=== PATIENT | male | born 1985 | race Caucasian/White ===

== ENCOUNTER 2019-11-07 23:28 | Emergency (ER) | payer OTHER ==
[2019-11-07 23:39] VITALS: BP 127/53; PULSE 89; TEMP 98.2; BMI 22.6
== END 2019-11-08 01:04 | disposition home or self-care (01) ==
LOC: JER 23:28
DX: Z48.02 Encounter for removal of sutures (principal)
CPT/HCPCS: 99282-25

== ENCOUNTER 2024-08-12 23:14 | Inpatient (IN) | payer SELFPAY ==
[2024-08-12] MEDS ORDERED: KETOROLAC TROMETHAMINE 15 MG/ML VIAL ONE (23:39)
[2024-08-12] MEDS ORDERED: ONDANSETRON 4 MG/2 ML VIAL ONE (23:39)
[2024-08-12] MEDS ORDERED: MORPHINE SULFATE 2 MG/ML SYRINGE ONE (23:39)
[2024-08-12] MEDS: morphine CARPU-JECT 2 MG/1 ML DISP.SYRIN IVPUSH ONE (23:50)
[2024-08-12] MEDS: ONDANSETRON 4 MG/2 ML VIAL IVPUSH ONE (23:50)
[2024-08-12] MEDS: KETOROLAC TROMETHAMINE 15 MG/ML VIAL IVPUSH ONE (23:50)
[2024-08-13 00:04] LABS: ABSOLUTE IMMATURE GRANULOCYTES 0.05 x10^3/uL (0.0-0.031); BASOPHILS # 0.08 x10^3/uL (0.01-0.08); EOSINOPHIL % 2.4 % (0.8-7.0); EOSINOPHILS # 0.25 x10^3/uL (0.04-0.54); HEMATOCRIT 36.1 % (40.1-51.0); HEMOGLOBIN 12.1 g/dL (13.7-17.5); MCHC 33.5 g/dl (32.3-36.5); MEAN CELL VOLUME 92.3 fl (79.0-92.2); MEAN PLT VOLUME 10.5 fl (9.4-12.4); MONOCYTE % 4.8 % (5.3-12.2); PLATELET COUNT 278 x10^3/uL (163-337); RDW 14.7 % (12.0-15.6)
[2024-08-13 00:25] LABS: POTASSIUM 4.2 mmol/L (3.5-5.1)
[2024-08-13 00:27] LABS: ALBUMIN 4.6 g/dl (3.4-5.0); BLOOD UREA NITROGEN 22.9 mg/dL (7-18); CALCIUM 10.2 mg/dL (8.5-10.1)
[2024-08-13 00:30] LABS: CREATININE 1.5 mg/dL (0.55-1.3)
[2024-08-13 00:32] LABS: BILIRUBIN,TOTAL 0.3 mg/dL (0.2-1); TOT PROT 8.5 g/dl (6.4-8.2)
[2024-08-13] MEDS ORDERED: TAMSULOSIN HCL 0.4 MG CAP ONE (00:52)
[2024-08-13] MEDS: TAMSULOSIN HCL 0.4 MG CAP PO ONE (00:57)
[2024-08-13] MEDS: SODIUM CHLORIDE 1,000 ML IV STA (00:57)
[2024-08-13 01:28] LABS: EPI CELLS 13 /uL (0-25.1); HYALINE CASTS 0 /uL (0-3.1); URINE APPEARANCE CLEAR; URINE BACTERIA 11 /uL (0-1359); URINE BILIRUBIN NEGATIVE (NEGATIVE); URINE COLOR YELLOW; URINE GLUCOSE (UA) NEGATIVE (NEGATIVE); URINE KETONE TRACE (NEGATIVE); URINE LEUK ESTERASE TRACE (NEGATIVE); URINE NITRITE NEGATIVE (NEGATIVE); URINE PROTEIN TRACE (NEGATIVE); URINE RBC 470 /uL (0-23.9); URINE WBC 48 /uL (0-25.8)
[2024-08-13] MEDS ORDERED: ALBUTEROL SO4 0.083% IH SOL 2.5 MG/3 ML VIAL.NEB. NEB PRN ×2 (02:53→08:22)
[2024-08-13] MEDS ORDERED: CEFTRIAXONE 1,000 MG in DEXTROSE 5%-WATER - 50 ML IVPB ONE (03:07)
[2024-08-13] MEDS ORDERED: morphine CARPU-JECT 8 MG/1 ML DISP.SYRIN IVPUSH PRN (06:15)
[2024-08-13 06:19] VITALS: BMI 18.8
[2024-08-13] MEDS: ACETAMINOPHEN 325 MG TABLET (FP) PO PRN (06:22)
[2024-08-13] MEDS: SODIUM CHLORIDE 1,000 ML IV SCH ×2 (06:23→09:25)
[2024-08-13] MEDS: FLUTICASONE PROP 0.05% 16 GM NASAL SPRAY NS ONE (06:50)
[2024-08-13] MEDS ORDERED: PROPOFOL 20 ML ONE (07:30)
[2024-08-13] MEDS ORDERED: MIDAZOLAM HCL 2 MG/2 ML SINGLE DOSE VIAL ONE (07:31)
[2024-08-13] MEDS ORDERED: oxyCODONE HCL 5 MG TABLET PO PRN (07:55)
[2024-08-13] MEDS: morphine CARPU-JECT 8 MG/1 ML DISP.SYRIN IVPUSH SCH (08:07)
[2024-08-13] MEDS: LACTATED RINGERS SOLUTION 1,000 ML IV SCH (08:08)
[2024-08-13] MEDS ORDERED: ACETAMINOPHEN 325 MG TABLET (FP) PO PRN ×2 (08:22→13:37)
[2024-08-13 09:02] VITALS: RESP 18
[2024-08-13] MEDS ORDERED: BUDESONIDE/FORMETEROL FUMARATE 160/4.5 mcg INHALER IH SCH (10:00)
[2024-08-13] MEDS ORDERED: guaiFENesin 600 MG TABLET.ER (FP) PO SCH (10:00)
[2024-08-13] MEDS ORDERED: FLUTICASONE PROP 0.05% 16 GM NASAL SPRAY NS SCH (10:00)
[2024-08-13] MEDS ORDERED: predniSONE 20 MG TABLET (UD) PO SCH (10:00)
[2024-08-13] MEDS: oxyCODONE HCL 5 MG TABLET PO PRN (10:28)
[2024-08-13] MEDS: guaiFENesin 600 MG TABLET.ER (FP) PO SCH (12:37)
[2024-08-13] MEDS: FLUTICASONE PROP 0.05% 16 GM NASAL SPRAY NS SCH (12:37)
[2024-08-13 13:08] LABS: HEMATOCRIT 33.2 % (40.1-51.0); HEMOGLOBIN 10.9 g/dL (13.7-17.5); MCHC 32.8 g/dl (32.3-36.5); MEAN CELL VOLUME 92.7 fl (79.0-92.2); MEAN PLT VOLUME 10.9 fl (9.4-12.4); PLATELET COUNT 224 x10^3/uL (163-337); RDW 14.7 % (12.0-15.6)
[2024-08-13 13:42] LABS: POTASSIUM 4.3 mmol/L (3.5-5.1)
[2024-08-13 13:43] LABS: BLOOD UREA NITROGEN 19.7 mg/dL (7-18)
[2024-08-13 13:44] LABS: ALBUMIN 3.9 g/dl (3.4-5.0); CALCIUM 8.9 mg/dL (8.5-10.1)
[2024-08-13 13:47] LABS: CREATININE 1.1 mg/dL (0.55-1.3)
[2024-08-13 13:48] LABS: BILIRUBIN,TOTAL 0.4 mg/dL (0.2-1); TOT PROT 7.3 g/dl (6.4-8.2)
[2024-08-13] MEDS: TAMSULOSIN HCL 0.4 MG CAP PO SCH (21:25)
[2024-08-13] MEDS ORDERED: TAMSULOSIN HCL 0.4 MG CAP PO SCH (22:00)
[2024-08-14] MEDS: oxyCODONE HCL 5 MG TABLET PO PRN (01:08)
[2024-08-14] MEDS ORDERED: TAMSULOSIN HCL 0.4 MG CAP PO SCH (08:00)
[2024-08-14 09:56] LABS: HEMATOCRIT 33.9 % (40.1-51.0); HEMOGLOBIN 11.5 g/dL (13.7-17.5); MCHC 33.9 g/dl (32.3-36.5); MEAN CELL VOLUME 91.9 fl (79.0-92.2); MEAN PLT VOLUME 10.3 fl (9.4-12.4); PLATELET COUNT 243 x10^3/uL (163-337); RDW 14.7 % (12.0-15.6)
[2024-08-14 10:22] LABS: POTASSIUM 4.2 mmol/L (3.5-5.1)
[2024-08-14 10:27] LABS: ALBUMIN 3.9 g/dl (3.4-5.0); CALCIUM 9.4 mg/dL (8.5-10.1); MAGNESIUM 2.3 mg/dL (1.8-2.4)
[2024-08-14 10:30] LABS: CREATININE 1.2 mg/dL (0.55-1.3)
[2024-08-14 10:32] LABS: BILIRUBIN,TOTAL 0.8 mg/dL (0.2-1); TOT PROT 7.4 g/dl (6.4-8.2)
[2024-08-14 13:36] VITALS: BP 130/86; PULSE 87; TEMP 97.5
== END 2024-08-14 17:10 | disposition home or self-care (01) | DRG 465 ==
LOC: JER 23:14 → JERBED 08-13 01:47 → OBSVTOIN 08-13 02:53 → J7W 08-13 05:27
PROVIDERS: ADMIT Internal Medicine; ATTEND Physician Assistant
PROC: 0T768DZ Dilation of Right Ureter with Intraluminal Device, Via Natural or Artificial Opening Endoscopic (ICD-10-PCS; principal; 2024-08-13 07:30)
DX: N13.2 Hydronephrosis with renal and ureteral calculous obstruction (principal); N17.9 Acute kidney failure, unspecified; D64.9 Anemia, unspecified; R74.01 Elevation of levels of liver transaminase levels; D72.829 Elevated white blood cell count, unspecified; F17.210 Nicotine dependence, cigarettes, uncomplicated; J45.909 Unspecified asthma, uncomplicated; R94.5 Abnormal results of liver function studies; E83.52 Hypercalcemia
CPT/HCPCS: 0241U-QW; 36415; 71045-TC-FY; 74176-TC; 76000-TC-FY; 76705-TC; 80053; 81003; 82977; 83735; 83970; 85025; 85027; 87070; 87086; 87205; 93005; 93010; 94760; 99285-25; C2617; G0378